=== PATIENT | female | born 1990 | race Caucasian/White ===

== ENCOUNTER 2017-01-14 19:53 | Emergency (ER) | payer OTHER ==
[~2017-01-14] VITALS: Ht 160 cm; Wt 65.3 kg
[2017-01-14 20:05] VITALS: BP_SYST 142
--- NOTE | 2017-01-14 20:05 | NUR ---
Jey DAVIS assessing patient.
--- NOTE | 2017-01-14 20:05 | NUR ---
Patient to [facility].
--- NOTE | 2017-01-14 20:12 | NUR ---
Patient to ER C/O urinary symptoms of frequency, pain with urination, pelvic pain and 6/10 suprapubic pain for the last 2 days. Patient state sthat she took OTC medication without relief. Denies fever, no blood in urine. AAOx4, unlabored breathing, no signs of acute distress.
[2017-01-14 20:19] LABS: BILIRUBIN,URINE 1+ (NEGATIVE); BLOOD, URINE 3+ (NEGATIVE); CLARITY/URINE CLOUDY (CLEAR); COLOR,URINE RED (YELLOW); GLUCOSE,URINE NEGATIVE (NEGATIVE); KETONES,URINE NEGATIVE (NEGATIVE); LEUKOCYTE ESTERASE ,URINE 2+ (NEGATIVE); NITRITE, URINE NEGATIVE (NEGATIVE); PH,URINE 5.5 (5.0-8.0); PROTEIN URINE 1+ (NEGATIVE); UROBILINOGEN,URINE 0.2 (0.2-1.0)
[2017-01-14] MEDS ORDERED: PHENAZOPYRIDINE HCL 100 MG TABLET PO ONE (20:30)
[2017-01-14] MEDS ORDERED: NITROFURANTOIN MONOHYD/M-CRYST 100 MG CAPSULE PO ONE (20:30)
[2017-01-14 20:32] LABS: RBC,URINE >100 /HPF (0-3); WBC,URINE 20-50 /HPF (0-3)
[2017-01-14 20:33] LABS: BACTERIA,URINE MODERATE /HPF (None Seen); MUCUS,URINE None Seen /LPF (None Seen)
--- NOTE | 2017-01-14 20:55 | NUR ---
Patient medicated per [employer]EL[employer] Khanna orders. Scanner not working. Patient, drug, dose, route verified.
[2017-01-14 21:27] VITALS: BP_SYST 128
--- NOTE | 2017-01-14 21:27 | NUR ---
Patient given written and verbal discharge instructions and verbalizes understanding. ER [employer]PER[employer] YANET Lopez discussed with patient the results and treatment provided. Patient in stable condition. ID arm band removed. Rx of MACROBID, PYRIDIUM & MOTRIN given. Patient educated on pain management and to follow up with PMD. Pain Scale 0/10. Opportunity for questions provided and answered.
== END 2017-01-14 21:27 | disposition home or self-care (01) ==
LOC: SED 19:53
DX: N39.0 Urinary tract infection, site not specified (principal); R03.0 Elevated blood-pressure reading, without diagnosis of hypertension
CPT/HCPCS: 81000-TC; 81025; 87086; 87186-TC; 99284